=== PATIENT | male | born 1955 ===

== ENCOUNTER 2025-01-06 09:32 | Emergency (ER) | payer SELFPAY ==
[2025-01-06 10:49] LABS: APPEARANCE,URINE CLEAR (CLEAR); BILIRUBIN,URINE NEGATIVE (NEGATIVE); COLOR,URINE YELLOW (YELLOW); GLUCOSE,URINE NEGATIVE (NEGATIVE); KETONES,URINE NEGATIVE (NEGATIVE); LEUKOCYTE ESTERASE,URINE NEGATIVE (NEGATIVE); NITRITE,URINE NEGATIVE (NEGATIVE); OCCULT BLOOD,URINE NEGATIVE (NEGATIVE); PH,URINE 6.5 (5.0-8.0); PROTEIN,URINE NEGATIVE (NEGATIVE); UROBILINOGEN,URINE 0.2 EU/dL (0.2-1.0)
[2025-01-06 10:49] LABS: HEMATOCRIT 48.1 % (38.4-49.7); HEMOGLOBIN 15.8 g/dL (12.9-16.9); MEAN CORPUSCULAR HGB CONC 32.8 g/dL (31.6-35.5); MEAN CORPUSCULAR VOLUME 94.5 fL (81.4-99.0); PLATELET COUNT,PLT 152 K/uL (130-375); RED BLOOD CELL COUNT 5.09 M/uL (4.14-5.76)
[2025-01-06 10:50] LABS: RBC,URINE NOT SEEN (0-5)
[2025-01-06 10:51] LABS: BACTERIA,URINE NOT SEEN; EPITHELIAL CELLS,URINE NOT SEEN; WBC,URINE NOT SEEN (0-5)
[2025-01-06 11:03] LABS: CALCIUM 8.7 mg/dL (8.5-10.1); CREATININE 0.9 mg/dL (0.8-1.3); EST CRCL DRUG DOSING (CG) 68.33 mL/min; POTASSIUM,K 4.4 mmol/L (3.6-5.2)
[2025-01-06 11:15] LABS: BAND PERCENT MAN 1 % (5-11); LYMPHOCYTES PERCENT MAN 41 % (24-44); MONOCYTES PERCENT MAN 10 % (2-6); SEG NEUTROPHILS PERCENT MAN 48 % (36-66)
[2025-01-06 11:33] LABS: ANION GAP 12.4 mmol/L (5.0-14.0)
== END 2025-01-06 12:42 | disposition home or self-care (01) ==
LOC: JP.ED 09:32
DX: I48.20 Chronic atrial fibrillation, unspecified (principal); R42 Dizziness and giddiness; I10 Essential (primary) hypertension; Z79.899 Other long term (current) drug therapy
CPT/HCPCS: 36415; 80048; 81001; 84484; 85025; 93005; 99284